=== PATIENT | male | born 1975 | race African-American/Black ===

== ENCOUNTER 2017-11-09 09:01 | Emergency (ER) | payer OTHER ==
--- NOTE | 2017-11-09 10:04 | ER ---
Nurse's Notes [facility] Name: Delvin Fung Age: 42 yrs Sex: Male : 1975 Arrival Date: 11/09/2017 Time: 09:06 Bed 8 Private MD: Diagnosis: Localized swelling, mass and lump, unspecified-left breast Presentation: 11/09 09:20 Presenting complaint: Patient states: left breast pain for a while now, pain has gotten iw worse over past week, feels something in his breast tissue. Transition of care: patient was not received from another setting of care. Onset of symptoms was September 2017. Risk Assessment: Do you want to hurt yourself or someone else? Patient reports no desire to harm self or others. Initial Sepsis Screen: Does the patient meet any 2 criteria? No. Patient's initial sepsis screen is negative. Does the patient have a suspected source of infection? No. Patient's initial sepsis screen is negative. Care prior to arrival: None. 09:20 Method Of Arrival: Ambulatory iw 09:20 Acuity: SANDY 4 iw Historical: - Allergies: 09:27 NKA; iw - Home Meds: 09:27 None [Active]; iw - PMHx: 09:27 None; iw - PSHx: 09:27 None; iw - Immunization history:: Adult Immunizations not up to date. - Social history:: Smoking status: Patient uses tobacco products, denies chronic smoking, but will smoke occasionally. - Family history:: not pertinent. Screenin:29 Abuse screen: Denies threats or abuse. Denies injuries from another. Nutritional iw screening: No deficits noted. Tuberculosis screening: No symptoms or risk factors identified. Fall Risk None identified. Assessment: 09:28 General: Appears in no apparent distress. comfortable. iw 09:28 Pain: Complains of pain in left breast. Neuro: Level of Consciousness is awake, alert, iw obeys commands, Oriented to person, place, time, situation, Moves all extremities. Full function. Cardiovascular: Patient's skin is warm and dry. Respiratory: Respiratory effort is even, unlabored, Respiratory pattern is regular. Derm: Skin is intact, is healthy with good turgor. Musculoskeletal: Range of motion: intact in all extremities. 10:06 Reassessment: Patient appears in no apparent distress at this time. discharge ordered sg prior to having radiology, pt remains in the ED until testing is complete. Vital Signs: 09:25 BP 120 / 64; Pulse 65; Resp 16; Temp 98.2; Pulse Ox 100% on R/A; Weight 104.33 kg; iw Height 6 ft. 1 in. (185.42 cm); Pain 0/10; 10:43 BP 119 / 88; Pulse 66; Resp 16; Pulse Ox 100% on R/A; Pain 0/10; sg 09:25 Body Mass Index 30.34 (104.33 kg, 185.42 cm) iw ED Course: 09:06 Patient arrived in ED. mr 09:23 Triage completed. iw 09:25 Arm band placed on. iw 09:28 Tavo Valladares MD is Attending Physician. jeana 09:29 No provider procedures requiring assistance completed. Patient did not have IV access iw during this emergency room visit. 09:42 Manuelito Ceron, RN is Primary Nurse. sg 10:02 Kirby Casillas MD is Referral Physician. jeana 10:03 Awaiting: ultrasound at this time. sg 10:23 BREAST/AXILLA, COMPLETE In Process Unspecified. EDMS 10:26 Awaiting: ultrasound. sg Administered Medications: 10:03 Drug: Motrin 600 mg Route: PO; sg Outcome: 10:04 Discharge ordered by . jeana 11:30 Patient left the ED. iw Signatures: Dispatcher [employer] EDMS Manuelito Ceron, RN RN sg Tavo Valladares MD MD cha Rivera, Maria Alka Amezcua RN RN iw
--- NOTE | 2017-11-09 10:04 | EDPHYS ---
Physician Documentation [facility] Name: Delvin Fung Age: 42 yrs Sex: Male : 1975 Arrival Date: 11/09/2017 Time: 09:06 Bed 8 Private MD: ED Physician Tavo Valladares HPI: 11/09 09:59 This 42 yrs old Black Male presents to ER via Ambulatory with complaints of Breast jeana Problem. 09:59 Description: The affected area is small, localized. Onset: The symptoms/episode jeana began/occurred 1 month(s) ago. Possible cause(s): unknown. Associated signs and symptoms: The patient has no apparent associated signs or symptoms. Modifying factors: the symptoms are alleviated by nothing. Severity of symptoms: At their worst the symptoms were mild, in the emergency department the symptoms are unchanged. The patient has not experienced similar symptoms in the past. Historical: - Allergies: : NKA; iw - Home Meds: : None [Active]; iw - PMHx: : None; iw - PSHx: : None; iw - Immunization history:: Adult Immunizations not up to date. - Social history:: Smoking status: Patient uses tobacco products, denies chronic smoking, but will smoke occasionally. - Family history:: not pertinent. ROS: 09:59 Constitutional: Negative for fever, chills, and weight loss, Eyes: Negative for injury, jeana pain, redness, and discharge, ENT: Negative for injury, pain, and discharge, Neck: Negative for injury, pain, and swelling, Cardiovascular: Negative for chest pain, palpitations, and edema, Respiratory: Negative for shortness of breath, cough, wheezing, and pleuritic chest pain, Abdomen/GI: Negative for abdominal pain, nausea, vomiting, diarrhea, and constipation, Back: Negative for injury and pain, : Negative for injury, bleeding, discharge, and swelling, MS/Extremity: Negative for injury and deformity, Neuro: Negative for headache, weakness, numbness, tingling, and seizure, Psych: Negative for depression, anxiety, suicide ideation, homicidal ideation, and hallucinations, Allergy/Immunology: Negative for hives, rash, and allergies, Endocrine: Negative for neck swelling, polydipsia, polyuria, polyphagia, and marked weight changes, Hematologic/Lymphatic: Negative for swollen nodes, abnormal bleeding, and unusual bruising. 09:59 Skin: Positive for swelling. Exam: 09:59 Constitutional: This is a well developed, well nourished patient who is awake, alert, jeana and in no acute distress. Head/Face: Normocephalic, atraumatic. Eyes: Pupils equal round and reactive to light, extra-ocular motions intact. Lids and lashes normal. Conjunctiva and sclera are non-icteric and not injected. Cornea within normal limits. Periorbital areas with no swelling, redness, or edema. ENT: Nares patent. No nasal discharge, no septal abnormalities noted. Tympanic membranes are normal and external auditory canals are clear. Oropharynx with no redness, swelling, or masses, exudates, or evidence of obstruction, uvula midline. Mucous membranes moist. Neck: Trachea midline, no thyromegaly or masses palpated, and no cervical lymphadenopathy. Supple, full range of motion without nuchal rigidity, or vertebral point tenderness. No Meningismus. Chest/axilla: Normal chest wall appearance and motion. Nontender with no deformity. No lesions are appreciated. Cardiovascular: Regular rate and rhythm with a normal S1 and S2. No gallops, murmurs, or rubs. Normal PMI, no JVD. No pulse deficits. Respiratory: Lungs have equal breath sounds bilaterally, clear to auscultation and percussion. No rales, rhonchi or wheezes noted. No increased work of breathing, no retractions or nasal flaring. Abdomen/GI: Soft, non-tender, with normal bowel sounds. No distension or tympany. No guarding or rebound. No evidence of tenderness throughout. Back: No spinal tenderness. No costovertebral tenderness. Full range of motion. Male : Normal genitalia with no discharge or lesions. MS/ Extremity: Pulses equal, no cyanosis. Neurovascular intact. Full, normal range of motion. Neuro: Awake and alert, GCS 15, oriented to person, place, time, and situation. Cranial nerves II-XII grossly intact. Motor strength 5/5 in all extremities. Sensory grossly intact. Cerebellar exam normal. Normal gait. Psych: Awake, alert, with orientation to person, place and time. Behavior, mood, and affect are within normal limits. 09:59 Skin: Appearance: swelling, abscess, not appreciated, cellulitis, is not appreciated, induration, that is mild is noted, injury, is not appreciated. Vital Signs: 09:25 BP 120 / 64; Pulse 65; Resp 16; Temp 98.2; Pulse Ox 100% on R/A; Weight 104.33 kg; iw Height 6 ft. 1 in. (185.42 cm); Pain 0/10; 10:43 BP 119 / 88; Pulse 66; Resp 16; Pulse Ox 100% on R/A; Pain 0/10; sg 09:25 Body Mass Index 30.34 (104.33 kg, 185.42 cm) iw MDM: 09:28 Patient medically screened. [facility] 09:59 Data reviewed: vital signs, nurses notes, radiologic studies. [facility] 11/09 10:04 Order name: BREAST/AXILLA, COMPLETE EDMS Administered Medications: 10:03 Drug: Motrin 600 mg Route: PO; sg Disposition: 11/09/17 10:04 Discharged to Home. Impression: Localized swelling, mass and lump, unspecified - left breast. - Condition is Stable. - Discharge Instructions: Breast Self-Awareness. - Prescriptions for Tylenol- Codeine #3 300-30 mg Oral Tablet - take 2 tablet by ORAL route every 6 hours As needed; 30 tablet. Ibuprofen 600 mg Oral Tablet - take 1 tablet by ORAL route every 8 hours As needed take with food; 21 tablet. - Work release form, Medication Reconciliation Form, Thank You Letter, Antibiotic Education, Prescription Opioid Use form. - Follow up: Kirby Casillas MD; When: 2 - 3 days; Reason: Recheck today's complaints, Re-evaluation by your physician. - Problem is new. - Symptoms have improved. Signatures: Dispatcher [employer] EDMS Manuelito Ceron RN RN sg Anderson, Corey, MD MD cha Williams, Irene, RN RN iw Corrections: (The following items were deleted from the chart) 11:30 10:04 11/09/2017 10:04 Discharged to Home. Impression: Localized swelling, mass and iw lump, unspecified - left breast. Condition is Stable. Forms are Medication Reconciliation Form, Thank You Letter, Antibiotic Education, Prescription Opioid Use. Follow up: Kirby Casillas; When: 2 - 3 days; Reason: Recheck today's complaints, Re-evaluation by your physician. Problem is new. Symptoms have improved. [facility]
[2017-11-09] MEDS ORDERED: IBUPROFEN 200 MG TAB PO ONE (10:06)
--- NOTE | 2017-11-09 11:54 | RAD REPORT ---
EXAM DESCRIPTION: US - BREAST/AXILLA, COMPLETE - 11/09/2017 10:23 am CLINICAL HISTORY: Left chest palpable abnormality. COMPARISON: No comparisons FINDINGS: Full left breast sonography was performed including all 4 quadrants and the retroareolar r egion. Ill-defined hypoechoic tissue measuring 2.2 x 4.5 cm is present in the left retroareolar region. This most likely represents an area of gynecomastia, although mass is difficult to exclude by ultrasound. A follow-up mammogram would be recommended.
== END 2017-11-09 11:30 | disposition home or self-care (01) ==
LOC: ER 09:01
DX: R22.2 Localized swelling, mass and lump, trunk (principal); Z72.0 Tobacco use
CPT/HCPCS: 76641; 99283

== ENCOUNTER 2018-02-03 09:34 | Emergency (ER) | payer OTHER ==
--- NOTE | 2018-02-03 09:54 | EDPHYS ---
Physician Documentation [facility] Name: Delvin Fung Age: 42 yrs Sex: Male : 1975 Arrival Date: 02/03/2018 Time: 09:37 Bed 13 Private MD: None, None ED Physician Bogdan Calvin HPI: 02/03 09:55 This 42 yrs old Black Male presents to ER via Ambulatory with complaints of Sinus Pain. kb 09:55 The patient or guardian reports congestion. Onset: The symptoms/episode began/occurred kb last night. Severity of symptoms: At their worst the symptoms were mild, moderate, in the emergency department the symptoms are unchanged. Modifying factors: The symptoms are alleviated by nothing, the symptoms are aggravated by nothing. Associated signs and symptoms: The patient has no apparent associated signs or symptoms. The patient has experienced similar episodes in the past. Pt states he was around a lot of dust yesterday and last night started having congestion. Historical: - Allergies: 09:45 NKA; ch - Home Meds: :45 None [Active]; ch - PMHx: 09:45 Asthma; ch - PSHx: 09:45 None; ch - Immunization history:: Adult Immunizations up to date, Flu vaccine is not up to date. - Social history:: Smoking status: Patient/guardian denies using tobacco, Patient/guardian denies using alcohol, street drugs. - Ebola Screening: : Patient negative for fever greater than or equal to 101.5 degrees Fahrenheit, and additional compatible Ebola Virus Disease symptoms Patient denies exposure to infectious person Patient denies travel to an Ebola-affected area in the 21 days before illness onset No symptoms or risks identified at this time. ROS: 09:54 Constitutional: Negative for fever, chills, and weight loss, Cardiovascular: Negative kb for chest pain, palpitations, and edema, Respiratory: Negative for shortness of breath, cough, wheezing, and pleuritic chest pain, Abdomen/GI: Negative for abdominal pain, nausea, vomiting, diarrhea, and constipation, Back: Negative for injury and pain, : Negative for injury, bleeding, discharge, and swelling, MS/Extremity: Negative for injury and deformity, Skin: Negative for injury, rash, and discoloration, Neuro: Negative for headache, weakness, numbness, tingling, and seizure. 09:54 ENT: Positive for sinus congestion. Exam: 09:54 Constitutional: This is a well developed, well nourished patient who is awake, alert, kb and in no acute distress. Head/Face: Normocephalic, atraumatic. ENT: Nares patent. No nasal discharge, no septal abnormalities noted. Tympanic membranes are normal and external auditory canals are clear. Oropharynx with no redness, swelling, or masses, exudates, or evidence of obstruction, uvula midline. Mucous membranes moist. Neck: Trachea midline, no thyromegaly or masses palpated, and no cervical lymphadenopathy. Supple, full range of motion without nuchal rigidity, or vertebral point tenderness. No Meningismus. Chest/axilla: Normal chest wall appearance and motion. Nontender with no deformity. No lesions are appreciated. Cardiovascular: Regular rate and rhythm with a normal S1 and S2. No gallops, murmurs, or rubs. Normal PMI, no JVD. No pulse deficits. Respiratory: Lungs have equal breath sounds bilaterally, clear to auscultation and percussion. No rales, rhonchi or wheezes noted. No increased work of breathing, no retractions or nasal flaring. Abdomen/GI: Soft, non-tender, with normal bowel sounds. No distension or tympany. No guarding or rebound. No evidence of tenderness throughout. Skin: Warm, dry with normal turgor. Normal color with no rashes, no lesions, and no evidence of cellulitis. MS/ Extremity: Pulses equal, no cyanosis. Neurovascular intact. Full, normal range of motion. Neuro: Awake and alert, GCS 15, oriented to person, place, time, and situation. Cranial nerves II-XII grossly intact. Motor strength 5/5 in all extremities. Sensory grossly intact. Cerebellar exam normal. Normal gait. Vital Signs: 09:45 BP 127 / 70; Pulse 75; Resp 18; Temp 98.6(O); Pulse Ox 99% on R/A; Weight 104.33 kg; ch Height 6 ft. 1 in. (185.42 cm); Pain 3/10; 09:45 Body Mass Index 30.34 (104.33 kg, 185.42 cm) ch MDM: 09:46 Patient medically screened. kb 09:54 Data reviewed: vital signs, nurses notes. Data interpreted: Pulse oximetry: on room air kb is 99 %. Interpretation: normal. Counseling: I had a detailed discussion with the patient and/or guardian regarding: the historical points, exam findings, and any diagnostic results supporting the discharge/admit diagnosis, the need for outpatient follow up, a family practitioner, to return to the emergency department if symptoms worsen or persist or if there are any questions or concerns that arise at home. Administered Medications: No medications were administered Disposition: 10:23 Co-signature as Attending Physician, Bogdan Calvin MD. rn Disposition: 02/03/18 09:53 Discharged to Home. Impression: Nasal congestion. - Condition is Stable. - Discharge Instructions: Sinusitis, Adult, [id number]. - Work release form, Medication Reconciliation Form, Thank You Letter, Antibiotic Education, Prescription Opioid Use form. - Follow up: Emergency Department; When: As needed; Reason: Worsening of condition. Follow up: Private Physician; When: 2 - 3 days; Reason: Recheck today's complaints, Continuance of care, Re-evaluation by your physician. - Notes: Use Flonase daily Signatures: Barbara Nunez, EL-[employer]-Marii Hwang, RN RN Bogdan Felix MD MD rn transplant: (The following items were deleted from the chart) 10:12 09:53 02/03/2018 09:53 Discharged to Home. Impression: Nasal congestion. Condition is ch Stable. Forms are Medication Reconciliation Form, Thank You Letter, Antibiotic Education, Prescription Opioid Use. Follow up: Emergency Department; When: As needed; Reason: Worsening of condition. Follow up: Private Physician; When: 2 - 3 days; Reason: Recheck today's complaints, Continuance of care, Re-evaluation by your physician. kb
--- NOTE | 2018-02-03 09:54 | ER ---
Nurse's Notes [facility] Name: Delvin Fung Age: 42 yrs Sex: Male : 1975 Arrival Date: 02/03/2018 Time: 09:37 Bed 13 Private MD: None, None Diagnosis: Nasal congestion Presentation: 02/03 09:43 Presenting complaint: Patient states: I am all stopped, coughing yellow sputum, and ch pressure behind my eyes. very congested. took Benadryl last night. felt a little bit last night but worse today. Transition of care: patient was not received from another setting of care. Onset of symptoms was February 02, 2018 at 19:00. Risk Assessment: Do you want to hurt yourself or someone else? Patient reports no desire to harm self or others. Initial Sepsis Screen: Does the patient meet any 2 criteria? No. Patient's initial sepsis screen is negative. Does the patient have a suspected source of infection? No. Patient's initial sepsis screen is negative. Care prior to arrival: None. 09:43 Method Of Arrival: Ambulatory 09:43 Acuity: SANDY 4 ch Triage Assessment: 09:45 Headache History: The patient has had previous headaches and this one is similar to previous episodes. General: Appears in no apparent distress. comfortable, Behavior is calm, cooperative, appropriate for age. Pain: Complains of pain in forehead, right cheek, left cheek, right eye and left eye Pain currently is 3 out of 10 on a pain scale. Pain began suddenly, Also complains of no other associated symptoms. EENT: Reports nasal congestion nasal discharge that is yellow. Neuro: Level of Consciousness is awake, alert, obeys commands, Oriented to person, place, time, situation, Industrial Equipment Mechanic are equal bilaterally. Respiratory: Airway is patent Respiratory effort is even, unlabored, Breath sounds are clear bilaterally. Respiratory: Reports cough that is. GI: No signs and/or symptoms were reported involving the gastrointestinal system. Historical: - Allergies: :45 NKA; ch - Home Meds: :45 None [Active]; ch - PMHx: :45 Asthma; ch - PSHx: :45 None; ch - Immunization history:: Adult Immunizations up to date, Flu vaccine is not up to date. - Social history:: Smoking status: Patient/guardian denies using tobacco, Patient/guardian denies using alcohol, street drugs. - Ebola Screening: : Patient negative for fever greater than or equal to 101.5 degrees Fahrenheit, and additional compatible Ebola Virus Disease symptoms Patient denies exposure to infectious person Patient denies travel to an Ebola-affected area in the 21 days before illness onset No symptoms or risks identified at this time. Screenin:48 Abuse screen: Denies threats or abuse. Denies injuries from another. Nutritional ch screening: No deficits noted. Fall Risk None identified. 10:12 Tuberculosis screening: No symptoms or risk factors identified. ch Assessment: 09:48 Reassessment: Patient appears in no apparent distress at this time. Patient and/or ch family updated on plan of care and expected duration. Pain level reassessed. Patient is alert, oriented x 3, equal unlabored respirations, skin warm/dry/pink. Pain: Complains of pain in right eye and left eye and left cheek and right cheek and forehead. Vital Signs: 09:45 BP 127 / 70; Pulse 75; Resp 18; Temp 98.6(O); Pulse Ox 99% on R/A; Weight 104.33 kg; ch Height 6 ft. 1 in. (185.42 cm); Pain 3/10; 09:45 Body Mass Index 30.34 (104.33 kg, 185.42 cm) ED Course: 09:37 Patient arrived in ED. sb2 09:37 None, None is Private Physician. sb2 09:43 Marii Neves, ANANDA is Primary Nurse. ch 09:44 Triage completed. 09:45 [facility]C [facility] kb 09:45 Bogdan Calvin MD is Attending Physician. kb 09:45 Arm band placed on left wrist. Patient placed in an exam room, on a stretcher, on pulse oximetry. 09:48 No apparent distress. Resting quietly. ch 09:48 Patient has correct armband on for positive identification. Placed in gown. Bed in low ch position. Call light in reach. 09:48 No provider procedures requiring assistance completed. ch 10:12 Patient did not have IV access during this emergency room visit. ch Administered Medications: No medications were administered Outcome: 09:53 Discharge ordered by . kb 10:11 Discharged to home ambulatory. ch 10:11 Condition: stable 10:11 Discharge instructions given to patient, Instructed on discharge instructions, follow up and referral plans. Demonstrated understanding of instructions, follow-up care. 10:12 Patient left the ED. Signatures: Barbara Nunez FNP-C FNP-Ckb Hammond, Christina, RN RN Jessica Zhao2
== END 2018-02-03 10:12 | disposition home or self-care (01) ==
LOC: ER 09:34
DX: R09.81 Nasal congestion (principal)
CPT/HCPCS: 99283

== ENCOUNTER 2018-04-02 15:10 | Emergency (ER) | payer OTHER ==
--- NOTE | 2018-04-02 17:01 | ER ---
Nurse's Notes [facility] Name: Delvin Fung Age: 43 yrs Sex: Male : 1975 Arrival Date: 04/02/2018 Time: 15:13 Bed 11 Private MD: None, None Diagnosis: Acute upper respiratory infection, unspecified Presentation: 04/02 15:17 Presenting complaint: Patient states: I have been having a cough and congestion since la1 this morning at 0500 and a lot of people at work are sick as well. Transition of care: patient was not received from another setting of care. Onset of symptoms was April 02, 2018. Risk Assessment: Do you want to hurt yourself or someone else? Patient reports no desire to harm self or others. Initial Sepsis Screen: Does the patient meet any 2 criteria? No. Patient's initial sepsis screen is negative. Does the patient have a suspected source of infection? No. Patient's initial sepsis screen is negative. Care prior to arrival: None. 15:17 Method Of Arrival: Ambulatory la1 15:17 Acuity: SANDY 4 la1 Triage Assessment: 17:09 General: Appears in no apparent distress. Behavior is calm. Respiratory: Airway. iw Historical: - Allergies: 15:18 NKA; la1 - PMHx: 15:18 Asthma; la1 - Immunization history:: Adult Immunizations up to date. - Social history:: Smoking status: Patient/guardian denies using tobacco. - Ebola Screening: : No symptoms or risks identified at this time. Screenin:08 Abuse screen: Denies threats or abuse. Denies injuries from another. Nutritional iw screening: No deficits noted. Tuberculosis screening: No symptoms or risk factors identified. Fall Risk None identified. Assessment: 16:15 General: Appears in no apparent distress. Behavior is calm, cooperative. Pain: Denies iw pain. Neuro: Level of Consciousness is awake, alert, obeys commands, Oriented to person, place, time. Cardiovascular: Patient's skin is warm and dry. Respiratory: Airway is patent Respiratory effort is even, unlabored, Breath sounds are clear bilaterally. GI: No signs and/or symptoms were reported involving the gastrointestinal system. Derm: Skin is intact, is healthy with good turgor. Musculoskeletal: Range of motion: intact in all extremities. Vital Signs: 15:18 BP 125 / 62; Pulse 90; Resp 18; Temp 97.2; Pulse Ox 100% on R/A; Weight 104.33 kg; la1 Height 6 ft. 1 in. (185.42 cm); 15:18 Body Mass Index 30.34 (104.33 kg, 185.42 cm) la1 ED Course: 15:13 Patient arrived in ED. mr 15:13 None, None is Private Physician. mr 15:17 Triage completed. la1 15:19 Arm band placed on right ankle. la1 16:00 Patient has correct armband on for positive identification. iw 16:23 Alka Amezcua, RN is Primary Nurse. iw 16:42 Vamsi Love PA is PHCP. jr8 16:42 Bismark Bryson MD is Attending Physician. jr8 17:09 No provider procedures requiring assistance completed. Patient did not have IV access iw during this emergency room visit. Administered Medications: No medications were administered Outcome: 17:01 Discharge ordered by . jr8 17:09 Discharged to home ambulatory. iw 17:09 Condition: good 17:09 Discharge instructions given to patient, Instructed on discharge instructions, follow up and referral plans. medication usage, Demonstrated understanding of instructions, follow-up care, medications, Prescriptions given X 2. 17:10 Patient left the ED. la1 Signatures: Awilda Hugo mr Alka Amezcua, ANANDA MALAVE Vamsi Love PA PA [facility] Chilo Irving RN RN la1
--- NOTE | 2018-04-02 17:02 | EDPHYS ---
Physician Documentation [facility] Name: Delvin Fung Age: 43 yrs Sex: Male : 1975 Arrival Date: 04/02/2018 Time: 15:13 Bed 11 Private MD: None, None ED Physician Bismark Bryson HPI: 04/02 17:25 This 43 yrs old Black Male presents to ER via Ambulatory with complaints of Cough, jr8 Congestion. 17:25 The patient or guardian reports cough, that is intermittent, described as mild, with no jr8 sputum. Onset: The symptoms/episode began/occurred gradually, 2 day(s) ago. Severity of symptoms: At their worst the symptoms were mild, in the emergency department the symptoms are unchanged. Modifying factors: The symptoms are alleviated by nothing, the symptoms are aggravated by nothing. Associated signs and symptoms: Pertinent positives: sore throat. The patient has not experienced similar symptoms in the past. The patient has not recently seen a physician. Historical: - Allergies: 15:18 NKA; la1 - PMHx: 15:18 Asthma; la1 - Immunization history:: Adult Immunizations up to date. - Social history:: Smoking status: Patient/guardian denies using tobacco. - Ebola Screening: : No symptoms or risks identified at this time. ROS: 17:25 Eyes: Negative for injury, pain, redness, and discharge, Neck: Negative for injury, jr8 pain, and swelling, Cardiovascular: Negative for chest pain, palpitations, and edema, Abdomen/GI: Negative for abdominal pain, nausea, vomiting, diarrhea, and constipation, Back: Negative for injury and pain, MS/Extremity: Negative for injury and deformity, Skin: Negative for injury, rash, and discoloration, Neuro: Negative for headache, weakness, numbness, tingling, and seizure. 17:25 ENT: Positive for rhinorrhea, sinus congestion, sore throat. 17:25 Respiratory: Positive for cough, Negative for shortness of breath, sputum production, wheezing. Exam: 17:25 Eyes: Pupils equal round and reactive to light, extra-ocular motions intact. Lids and jr8 lashes normal. Conjunctiva and sclera are non-icteric and not injected. Cornea within normal limits. Periorbital areas with no swelling, redness, or edema. ENT: Nares patent. No nasal discharge, no septal abnormalities noted. Tympanic membranes are normal and external auditory canals are clear. Oropharynx with no redness, swelling, or masses, exudates, or evidence of obstruction, uvula midline. Mucous membranes moist. Neck: Trachea midline, no thyromegaly or masses palpated, and no cervical lymphadenopathy. Supple, full range of motion without nuchal rigidity, or vertebral point tenderness. No Meningismus. Cardiovascular: Regular rate and rhythm with a normal S1 and S2. No gallops, murmurs, or rubs. Normal PMI, no JVD. No pulse deficits. Respiratory: Lungs have equal breath sounds bilaterally, clear to auscultation and percussion. No rales, rhonchi or wheezes noted. No increased work of breathing, no retractions or nasal flaring. Abdomen/GI: Soft, non-tender, with normal bowel sounds. No distension or tympany. No guarding or rebound. No evidence of tenderness throughout. Back: No spinal tenderness. No costovertebral tenderness. Full range of motion. Skin: Warm, dry with normal turgor. Normal color with no rashes, no lesions, and no evidence of cellulitis. MS/ Extremity: Pulses equal, no cyanosis. Neurovascular intact. Full, normal range of motion. Neuro: Awake and alert, GCS 15, oriented to person, place, time, and situation. Cranial nerves II-XII grossly intact. Motor strength 5/5 in all extremities. Sensory grossly intact. Cerebellar exam normal. Normal gait. Vital Signs: 15:18 BP 125 / 62; Pulse 90; Resp 18; Temp 97.2; Pulse Ox 100% on R/A; Weight 104.33 kg; la1 Height 6 ft. 1 in. (185.42 cm); 15:18 Body Mass Index 30.34 (104.33 kg, 185.42 cm) la1 MDM: 16:43 Patient medically screened. jr8 17:00 Data reviewed: vital signs, nurses notes, lab test result(s), Flu: negative and as a jr8 result, I will discharge patient. Data interpreted: Pulse oximetry: on room air is 100 %. Interpretation: normal. Counseling: I had a detailed discussion with the patient and/or guardian regarding: the historical points, exam findings, and any diagnostic results supporting the discharge/admit diagnosis, lab results, the need for outpatient follow up, a family practitioner, to return to the emergency department if symptoms worsen or persist or if there are any questions or concerns that arise at home. 04/02 15:19 Order name: Flu; Complete Time: 16:43 la1 Administered Medications: No medications were administered Disposition: 18:55 Co-signature as Attending Physician, Bismark Bryson MD Available for consultation at ps1 all times . Disposition: 04/02/18 17:01 Discharged to Home. Impression: Acute upper respiratory infection, unspecified. - Condition is Stable. - Discharge Instructions: Upper Respiratory Infection, Adult. - Prescriptions for Prednisone 20 mg Oral Tablet - take 1 tablet by ORAL route once daily for 5 days; 5 tablet. Albuterol Sulfate 90 mcg/actuation - inhale 1-2 puff by INHALATION route every 4-6 hours; 1 Inhaler. Guaifenesin AC 10- 100 mg/5 mL Oral Liquid - take 10 milliliter by ORAL route every 4 hours As needed; 240 milliliter. - Work release form, Medication Reconciliation Form, Thank You Letter, Antibiotic Education, Prescription Opioid Use form. - Follow up: Private Physician; When: 2 - 3 days; Reason: Recheck today's complaints, Continuance of care, Re-evaluation by your physician. - Problem is new. - Symptoms have improved. Signatures: Dispatcher [employer] EDMS Vamsi Love PA PA jr8 Chilo Irving RN RN Bismark Cruz MD MD ps1 Corrections: (The following items were deleted from the chart) 17:10 17:01 04/02/2018 17:01 Discharged to Home. Impression: Acute upper respiratory la1 infection, unspecified. Condition is Stable. Forms are Medication Reconciliation Form, Thank You Letter, Antibiotic Education, Prescription Opioid Use. Follow up: Private Physician; When: 2 - 3 days; Reason: Recheck today's complaints, Continuance of care, Re-evaluation by your physician. Problem is new. Symptoms have improved. jr8
== END 2018-04-02 17:10 | disposition home or self-care (01) ==
LOC: ER 15:10
DX: J06.9 Acute upper respiratory infection, unspecified (principal)
CPT/HCPCS: 87804; 99282

== ENCOUNTER 2018-04-29 20:18 | Emergency (ER) | payer OTHER ==
--- NOTE | 2018-04-29 21:32 | ER ---
Nurse's Notes [facility] Name: Delvin Fung Age: 43 yrs Sex: Male : 1975 Arrival Date: 04/29/2018 Time: 20:19 Bed 27 Private MD: Diagnosis: Diarrhea, unspecified Presentation: 04/29 20:35 Presenting complaint: Patient states: that he is having diarrhea, has had 8 episodes fc today. Thinks he ate something bad. Transition of care: patient was not received from another setting of care. Onset of symptoms was April 29, 2018 at 04:00. Risk Assessment: Do you want to hurt yourself or someone else? Patient reports no desire to harm self or others. Initial Sepsis Screen: Does the patient meet any 2 criteria? HR > 90 bpm. Yes Does the patient have a suspected source of infection? No. Patient's initial sepsis screen is negative. Care prior to arrival: None. 20:35 Method Of Arrival: Ambulatory 20:35 Acuity: SANDY 4 fc Historical: - Allergies: 20:45 NKA; fc - Home Meds: 20:45 None [Active]; fc - PMHx: 20:45 Asthma; fc - PSHx: 20:45 None; fc - Immunization history:: Last tetanus immunization: up to date Flu vaccine is not up to date. - Social history:: Smoking status: Patient uses tobacco products, smokes one-half pack cigarettes per day, Patient uses alcohol, occasionally. Patient/guardian denies using street drugs. - Ebola Screening: : Patient negative for fever greater than or equal to 101.5 degrees Fahrenheit, and additional compatible Ebola Virus Disease symptoms Patient denies exposure to infectious person Patient denies travel to an Ebola-affected area in the 21 days before illness onset. - Family history:: not pertinent. Screenin:46 Abuse screen: Denies threats or abuse. Nutritional screening: No deficits noted. fc Tuberculosis screening: No symptoms or risk factors identified. Fall Risk None identified. Assessment: 21:39 General: Appears in no apparent distress. comfortable, Behavior is calm, cooperative. mg2 Pain: Denies pain. Neuro: Level of Consciousness is awake, alert, obeys commands, Oriented to person, place, time. Cardiovascular: Capillary refill < 3 seconds Patient's skin is warm and dry. Respiratory: Airway is patent Respiratory effort is even, unlabored, Respiratory pattern is regular, symmetrical. GI: Abdomen is flat, non-distended, Reports diarrhea. : No signs and/or symptoms were reported regarding the genitourinary system. EENT: No signs and/or symptoms were reported regarding the EENT system. Derm: Skin is intact, is healthy with good turgor, Skin is pink, warm \T\ dry. normal. Musculoskeletal: No signs and/or symptoms reported regarding the musculoskeletal system. 21:40 Reassessment: patient refused for blood test and treatment. He just wants a worknote. mg2 provider informed. Vital Signs: 20:35 BP 155 / 92; Pulse 122; Resp 18; Temp 99.9(O); Pulse Ox 97% on R/A; Weight 104.33 kg (R); Height 6 ft. 1 in. (185.42 cm) (R); Pain 0/10; 20:35 Body Mass Index 30.34 (104.33 kg, 185.42 cm) ED Course: 20:19 Patient arrived in ED. am2 20:35 Arm band placed on Patient placed in an exam room, on a stretcher. 20:37 Aldo Stratton, RN is Primary Nurse. mg2 20:40 Tavo Valladares MD is Attending Physician. [facility] 20:44 Triage completed. 20:46 Patient has correct armband on for positive identification. Placed in gown. Call light fc in reach. 21:40 No provider procedures requiring assistance completed. Patient did not have IV access mg2 during this emergency room visit. Administered Medications: 21:39 Not Given (Patient Refused): NS 0.9% 1000 ml IV at 1 bolus Per protocol; 1000 mL bolus mg2 Outcome: 21:32 Discharge ordered by . [facility] 21:41 Discharged to home ambulatory. mg2 21:41 Condition: stable 21:41 Discharge instructions given to patient, Instructed on discharge instructions, follow up and referral plans. Demonstrated understanding of instructions, follow-up care. 21:41 Patient left the ED. mg2 Signatures: Tavo Valladares MD MD cha Chretien, Felicia, RN RN Kati Lin am2 Aldo Stratton, ANANDA RN mg2
--- NOTE | 2018-04-29 21:32 | EDPHYS ---
Physician Documentation [facility] Name: Delvin Fung Age: 43 yrs Sex: Male : 1975 Arrival Date: 04/29/2018 Time: 20:19 Bed 27 Private MD: ED Physician Tavo Valladares HPI: 04/29 21:25 This 43 yrs old Black Male presents to ER via Ambulatory with complaints of Diarrhea. jeana 21:25 This 43 yrs old Black Male presents to ER via Ambulatory with complaints of Diarrhea. jeana 21:25 The patient presents to the emergency department with diarrhea, 8 times since the onset jeana of symptoms. Onset: The symptoms/episode began/occurred 1 day(s) ago. Possible causes: unknown. The symptoms are aggravated by nothing. The symptoms are alleviated by nothing. Associated signs and symptoms: The patient has no apparent associated signs or symptoms. Severity of symptoms: At their worst the symptoms were mild. The patient has not experienced similar symptoms in the past. Historical: - Allergies: 20:45 NKA; fc - Home Meds: 20:45 None [Active]; fc - PMHx: 20:45 Asthma; fc - PSHx: 20:45 None; fc - Immunization history:: Last tetanus immunization: up to date Flu vaccine is not up to date. - Social history:: Smoking status: Patient uses tobacco products, smokes one-half pack cigarettes per day, Patient uses alcohol, occasionally. Patient/guardian denies using street drugs. - Ebola Screening: : Patient negative for fever greater than or equal to 101.5 degrees Fahrenheit, and additional compatible Ebola Virus Disease symptoms Patient denies exposure to infectious person Patient denies travel to an Ebola-affected area in the 21 days before illness onset. - Family history:: not pertinent. ROS: 21:25 Constitutional: Negative for fever, chills, and weight loss, Eyes: Negative for injury, jeana pain, redness, and discharge, ENT: Negative for injury, pain, and discharge, Neck: Negative for injury, pain, and swelling, Cardiovascular: Negative for chest pain, palpitations, and edema, Respiratory: Negative for shortness of breath, cough, wheezing, and pleuritic chest pain, Back: Negative for injury and pain, : Negative for injury, bleeding, discharge, and swelling, MS/Extremity: Negative for injury and deformity, Skin: Negative for injury, rash, and discoloration, Neuro: Negative for headache, weakness, numbness, tingling, and seizure, Psych: Negative for depression, anxiety, suicide ideation, homicidal ideation, and hallucinations, Allergy/Immunology: Negative for hives, rash, and allergies, Endocrine: Negative for neck swelling, polydipsia, polyuria, polyphagia, and marked weight changes, Hematologic/Lymphatic: Negative for swollen nodes, abnormal bleeding, and unusual bruising. 21:25 Abdomen/GI: Positive for diarrhea. Exam: 21:25 Constitutional: This is a well developed, well nourished patient who is awake, alert, jeana and in no acute distress. Head/Face: Normocephalic, atraumatic. Eyes: Pupils equal round and reactive to light, extra-ocular motions intact. Lids and lashes normal. Conjunctiva and sclera are non-icteric and not injected. Cornea within normal limits. Periorbital areas with no swelling, redness, or edema. ENT: Nares patent. No nasal discharge, no septal abnormalities noted. Tympanic membranes are normal and external auditory canals are clear. Oropharynx with no redness, swelling, or masses, exudates, or evidence of obstruction, uvula midline. Mucous membranes moist. Neck: Trachea midline, no thyromegaly or masses palpated, and no cervical lymphadenopathy. Supple, full range of motion without nuchal rigidity, or vertebral point tenderness. No Meningismus. Chest/axilla: Normal chest wall appearance and motion. Nontender with no deformity. No lesions are appreciated. Cardiovascular: Regular rate and rhythm with a normal S1 and S2. No gallops, murmurs, or rubs. Normal PMI, no JVD. No pulse deficits. Respiratory: Lungs have equal breath sounds bilaterally, clear to auscultation and percussion. No rales, rhonchi or wheezes noted. No increased work of breathing, no retractions or nasal flaring. Back: No spinal tenderness. No costovertebral tenderness. Full range of motion. Male : Normal genitalia with no discharge or lesions. Skin: Warm, dry with normal turgor. Normal color with no rashes, no lesions, and no evidence of cellulitis. MS/ Extremity: Pulses equal, no cyanosis. Neurovascular intact. Full, normal range of motion. Neuro: Awake and alert, GCS 15, oriented to person, place, time, and situation. Cranial nerves II-XII grossly intact. Motor strength 5/5 in all extremities. Sensory grossly intact. Cerebellar exam normal. Normal gait. Psych: Awake, alert, with orientation to person, place and time. Behavior, mood, and affect are within normal limits. 21:25 Abdomen/GI: Inspection: abdomen appears normal, Bowel sounds: normal, Palpation: abdomen is soft and non-tender. Vital Signs: 20:35 BP 155 / 92; Pulse 122; Resp 18; Temp 99.9(O); Pulse Ox 97% on R/A; Weight 104.33 kg (R); Height 6 ft. 1 in. (185.42 cm) (R); Pain 0/10; 20:35 Body Mass Index 30.34 (104.33 kg, 185.42 cm) MDM: 20:40 Patient medically screened. [facility] 21:31 Data reviewed: vital signs, nurses notes. jeana Administered Medications: 21:39 Not Given (Patient Refused): NS 0.9% 1000 ml IV at 1 bolus Per protocol; 1000 mL bolus mg2 Disposition: 04/29/18 21:32 Discharged to Home. Impression: Diarrhea, unspecified. - Condition is Stable. - Discharge Instructions: Food Choices to Help Relieve Diarrhea, Adult, Diarrhea, Adult, Diarrhea, Adult, [id number]. - Medication Reconciliation Form, Thank You Letter, Antibiotic Education, Prescription Opioid Use, Work release form form. - Follow up: Private Physician; When: 2 - 3 days; Reason: Recheck today's complaints, Continuance of care, Re-evaluation by your physician. - Problem is new. - Symptoms have improved. Signatures: Dispatcher [employer] EDMA Tavo Valladares MD MD cha Chretien, Felicia, RN RN Aldo Stratton RN RN mg2 Corrections: (The following items were deleted from the chart) 21:41 21:32 04/29/2018 21:32 Discharged to Home. Impression: Diarrhea, unspecified. Condition mg2 is Stable. Forms are Medication Reconciliation Form, Thank You Letter, Antibiotic Education, Prescription Opioid Use. Follow up: Private Physician; When: 2 - 3 days; Reason: Recheck today's complaints, Continuance of care, Re-evaluation by your physician. Problem is new. Symptoms have improved. jeana
== END 2018-04-29 21:41 | disposition home or self-care (01) ==
LOC: ER 20:18
DX: R19.7 Diarrhea, unspecified (principal); F17.210 Nicotine dependence, cigarettes, uncomplicated
CPT/HCPCS: 99281